=== PATIENT | male | born 1935 | race Caucasian/White ===

== ENCOUNTER 2022-05-19 08:03 | Day surgery (SDC) | payer MEDICARE, OTHER ==
[~2022-05-19] VITALS: Ht 182.9 cm; Wt 91.2 kg
[2022-05-19] VITALS (7 sets, daily range): BP systolic 140–174; BP diastolic 82–89
[2022-05-19] MEDS ORDERED: normal saline 1000ml 1,000 ML IV SCH (08:30)
[2022-05-19] MEDS ORDERED: cefazolin/dext.iso 2gm/100ml 100 ML IV ONE (08:30)
[2022-05-19] MEDS ORDERED: VANCOMYCIN 1,500MG in normal saline IV soln 300 ML IV ONE (08:30)
[2022-05-19] MEDS ORDERED: ROSU40TA22 PO (08:38)
[2022-05-19] MEDS ORDERED: CARB-126 PO (08:38)
[2022-05-19] MEDS ORDERED: ALBU8.5H17 IH (08:38)
[2022-05-19] MEDS ORDERED: CARV25TA3 PO (08:38)
[2022-05-19] MEDS ORDERED: GABA-530 PO (08:38)
[2022-05-19] MEDS ORDERED: TADA20TA70 PO (08:38)
[2022-05-19] MEDS ORDERED: MULT-1172 PO (08:38)
[2022-05-19] MEDS ORDERED: ASPI-1264 PO (08:38)
[2022-05-19] MEDS ORDERED: LOSA25TA41 PO (08:38)
[2022-05-19] MEDS ORDERED: METF-438 PO (08:38)
[2022-05-19] MEDS ORDERED: FLO0.4C PO (08:38)
[2022-05-19] MEDS ORDERED: LEVO75TA7 PO (08:38)
[2022-05-19] MEDS ORDERED: FLUT1AER INH (08:38)
[2022-05-19 09:19] LABS: BASOPHILS % (AUTO) 0.5 % (0-1); EOSINOPHILS # (AUTO) 0.1 X10'3 (0-0.9); EOSINOPHILS % (AUTO) 2.1 % (0-6); HEMATOCRIT 43.7 % (42.0-52.0); HEMOGLOBIN 15.2 g/dl (14.0-17.9); LYMPHOCYTES # (AUTO) 1.4 X10'3 (1.1-4.8); LYMPHOCYTES % (AUTO) 20.7 % (21-51); MEAN CORPUSCULAR HEMOGLOBIN 32.6 PG (27.0-31.0); MEAN CORPUSCULAR HGB CONC 34.9 g/dL (33.0-36.5); MEAN CORPUSCULAR VOLUME 93.4 FL (78-98); MEAN PLATELET VOLUME 6.1 FL (7.4-10.4); MONOCYTES # (AUTO) 0.5 X10'3 (0-0.9); MONOCYTES % (AUTO) 7.3 % (2-12); NEUTROPHILS # (AUTO) 4.7 X10'3 (1.8-7.7); NEUTROPHILS % (AUTO) 69.4 % (42-75); PLATELET COUNT 230 X10'3 (140-440); RED BLOOD COUNT 4.68 X10'6 (4.70-6.10); RED CELL DISTRIBUTION WIDTH 14.2 % (11.5-14.5); WHITE BLOOD COUNT 6.8 X10'3 (4.5-11.0)
[2022-05-19 09:44] LABS: ALBUMIN 3.8 G/DL (3.4-5.0); ANION GAP 8 (8-16); BLOOD UREA NITROGEN 11 MG/DL (7-18); BUN/CREATININE RATIO 8.1 (5.4-32.0); CALCIUM 9.2 MG/DL (8.5-10.1); CHLORIDE 99 MMOL/L (99-107); CREATININE 1.35 MG/DL (0.60-1.10); GLUCOSE 124 MG/DL (70-104); MAGNESIUM 1.7 MG/DL (1.5-2.4); POTASSIUM 4.5 MMOL/L (3.5-5.1); SODIUM 137 MMOL/L (135-145); TOTAL CARBON DIOXIDE 29.6 MMOL/L (24-32); eGFR 50 ML/MIN
[2022-05-19] MEDS ORDERED: vancomycin 1,000mg inj ONE (10:14)
[2022-05-19] MEDS ORDERED: LIDOCAINE 2% w/EPI 1:100:000 30mL injection MDV**cath lab 1 only ONE (10:15)
[2022-05-19] MEDS ORDERED: PERFLUTREN PROTEIN-A MICROSPHR (Optison) 0.22 MG/ML 3ML VIAL IV ONE (10:30)
[2022-05-19] MEDS ORDERED: fentaNYL/PF 50MCG/1 ML 2ML syringe ONE (10:38)
[2022-05-19] MEDS ORDERED: midazolam 1 mg/ML 2ml injection ONE ×2 (10:38→12:01)
== END 2022-05-19 14:30 | disposition home or self-care (01) ==
LOC: SSTAY O 08:03
PROVIDERS: ATTEND Internal Medicine Cardiovascular Disease
DX: Z45.010 Encounter for checking and testing of cardiac pacemaker pulse generator [battery] (principal); I44.2 Atrioventricular block, complete; R55 Syncope and collapse; Z79.899 Other long term (current) drug therapy; Z98.890 Other specified postprocedural states; I08.1 Rheumatic disorders of both mitral and tricuspid valves
CPT/HCPCS: 33228; 36415; 80048; 82948; 83735; 85025; 85610; 93005; 93306; 99152; 99153; C1785; J2250; J3010; J3370; J3490; J7030; J7040; A6258